=== PATIENT | male | born 1980 | race Native Hawaiian/Other Pacific Islander ===

== ENCOUNTER 2017-07-10 10:15 | Observation (INO) | payer BC, OTHER ==
[2017-07-10 10:26] VITALS: BMI 34.4
[2017-07-10 10:57] LABS: BASO # 0.02 K/mm3 (0.0-2.0); BASO % 0.2 % (0.0-3.0); EOS # 0.1 (0.0-0.7); EOS % 1.1 % (1.5-5.0); GRAN # 5.72 (1.4-6.5); HEMOGLOBIN 15.9 g/dL (14.0-18.0); LYMPH # 4.6 (1.2-3.4); MEAN CELL VOLUME 84.7 fl (80.0-105.0); MEAN CORPUSCULAR HEMOGLOBIN 29.4 pg (25.0-35.0); MEAN CORPUSCULAR HGB CONC 34.7 g/dl (31.0-37.0); MEAN PLATELET VOLUME 9.5 fl (7.0-11.0); MONO # 0.5 (0.1-0.6); MONO % 4.7 % (1.0-6.0); RBC 5.41 10^6/uL (3.5-6.1); RED CELL DISTRIBUTION WIDTH 13.2 % (11.5-14.5)
--- NOTE | 2017-07-10 11:04 | ED PDOC ---
Arrival/HPI - General Chief Complaint: Palpitations Time Seen by Provider: 07/10/17 10:17 Historian: Patient - History of Present Illness Narrative History of Present Illness (Text): 07/10/17 11:04 A 39 year old male presents to the emergency department complaining of palpitations on and off, and at times shortness of breath. Patient reports palpitations developed last night. Patient reports he is taking Suboxone medication for the past 3-4 years. Patient notes he has been cutting down this medication in the past thirty days. Denies having these symptoms in the past. Patient notes father had history of [place] in the past. Patient reports to smoking cigarettes, less than a pack per day. Denies heat or cold intolerance. Denies diarrhea. Denies recent travel or prolonged immobilization. He DENIES chest pain to me. Denies pleuritic discomfort. Denies calf pain or swelling. Time/Duration: Other (last night) Symptom Onset: Sudden Symptom Course: Unchanged Activities at Onset: Rest Context: Home Past Medical History - Provider Review Nursing Documentation Reviewed: Yes - Psychiatric Hx Depression: No Hx Emotional Abuse: No Hx Physical Abuse: No Hx Substance Use: Yes - Surgical History Hx Musculoskeletal Surgery: Yes - Anesthesia Hx Anesthesia: Yes Hx Anesthesia Reactions: No Hx Malignant Hyperthermia: No - Suicidal Assessment Feels Threatened In Home Enviroment: No Family/Social History - Physician Review Nursing Documentation Reviewed: Yes Family/Social History: CAD/KS Smoking Status: Heavy Smoker > 10 Cigarettes Daily Hx Alcohol Use: No Hx Substance Use: Yes Substance used: marijuana Hx Substance Use Treatment: No Allergies/Home Meds Allergies/Adverse Reactions: Allergies No Known Allergies Allergy (Verified 07/10/17 10:31) Home Medications: Home Meds Medication Instructions Recorded Confirmed Buprenorphine HCl/Naloxone HCl 0.5 chang SL BID 12/22/11 07/10/17 [Suboxone 8 mg-2 mg] Ibuprofen [Motrin] 600 mg PO PRN PRN 07/10/17 07/10/17 Review of Systems - Review of Systems Constitutional: Fatigue, Other (tremors, hot/cold flashes). absent: Fevers Eyes: absent: Vision Changes ENT: Rhinorrhea. absent: Hearing Changes Respiratory: SOB. absent: Cough, Sputum Cardiovascular: Palpitations. absent: Chest Pain, Edema, Calf Pain, Orthopnea, Syncope Gastrointestinal: absent: Abdominal Pain Genitourinary Male: absent: Dysuria Musculoskeletal: absent: Back Pain, Neck Pain Skin: absent: Rash Neurological: absent: Headache, Dizziness, Focal Weakness Endocrine: absent: Polyuria Hemo/Lymphatic: absent: Easy Bleeding Psychiatric: absent: Depression, Suicidal Ideation Physical Exam - Physical Exam Narrative Physical Exam (Text): 07/10/17 11:01 Head: Atraumatic. Normocephalic. Eyes: PERRL. EOMI. Conjunctivae are not pale. ENT: Mucous membranes are moist and intact. Oropharynx is clear and symmetric. Neck: Supple. Full ROM. No JVD. No lymphadenopathy. No thyromegalyl. Cardiovascular: tachycardic. irregularly irregular rhythm. No murmurs, rubs, or gallops. Distal pulses are 2+ and symmetric. Pulmonary/Chest: No evidence of respiratory distress. Clear to auscultation bilaterally. No wheezing, rales or rhonchi. Abdominal: Soft and non-distended. There is no tenderness. No rebound, guarding, or rigidity. No organomegaly. Good bowel sounds. Back: No CVA tenderness. Extremities: No edema. No cyanosis. No clubbing. Full range of motion in all extremities. No calf tenderness. Skin: Skin is warm and dry. No petechiae. No purpura. Neurological: Alert, awake, and oriented to person, place, time, and situation. Normal speech. Motor and sensory exam intact. Psychiatric: Good eye contact. Normal interaction, affect, and behavior. Vital Signs Reviewed: Yes Vital Signs Temp Pulse Resp BP Pulse Ox 07/10/17 14:08 93 H 123/79 07/10/17 14:02 92 H 17 123/79 98 07/10/17 12:47 80 17 111/70 98 07/10/17 12:24 98 H 17 127/60 97 07/10/17 11:38 90 18 117/67 97 07/10/17 11:10 97 H 120/65 07/10/17 11:09 100 H 120/65 98 07/10/17 10:35 98.4 F 89 17 125/66 100 Temperature: Afebrile Blood Pressure: Normal Pulse: Irregular Respiratory Rate: Normal Appearance: Positive for: Well-Appearing, Non-Toxic, Comfortable Pain Distress: None Mental Status: Positive for: Alert and Oriented X 3 Finger Stick Blood Glucose: 87 Medical Decision Making ED Course and Treatment: 07/10/17 11:01 Impression: A 39 year old male with palpitations and shortness of breath, sudden onset last night. Plan: -- EKG -- Chest X-ray -- labs -- Cardizem -- Reassess and disposition Progress Notes: On exam, patient noted to be in tachycardic, irregular rhythm on monitor. EKG reveals atrial fibrillation with rapid ventricular response. He DENIES chest pain to me. No calf pain noted. Lungs clear. Oxygen saturations 100%. I feel sensation of sob likely due to tachyarrhytmia as no sob at rest and with rhythm control after Cardizem. Heparin bolus and drip initiated for new onset atrial fibrillation. Risks/benefits of medications reviewed with patient and family. 07/10/17 12:24 Chest X-ray Creator : Valerie Rachel MD IMPRESSION: No active pulmonary disease. Patient will be admitted to oncall physician Dr. Pederson, who has evaluated patient in Emergency department. Cardiology consulted. Treatment plan reviewed with patient he is agreeable to admission. Not tremulous or diaphoretic. - Lab Interpretations Lab Results: 07/10/17 10:40 07/10/17 10:40 Lab Results 07/10/17 11:15: Urine Color Yellow, Urine Appearance Clear, Urine pH 6.0, Ur Specific [place] 1.025, Urine Protein Negative, Urine Glucose (UA) Negative, Urine Ketones Negative, Urine Blood Large H, Urine Nitrate Negative, Urine Bilirubin Negative, Urine Urobilinogen 0.2, Ur Leukocyte Esterase Negative, Urine RBC 20 - 25, Urine WBC 0 - 2, Ur Epithelial Cells None, Amorphous Sediment Few, Urine Bacteria Mod 07/10/17 10:40: Sodium 142, Potassium 4.8, Chloride 107, Carbon Dioxide 25, Anion Gap 15, BUN 12, Creatinine 0.8, Est GFR ( Amer) > 60, Est GFR (Non- Af Amer) > 60, Random Glucose 101, Calcium 9.9, Magnesium 2.0, Total Bilirubin 0.1 L, AST 26, ALT 39, Alkaline Phosphatase 60, Lactate Dehydrogenase 401, Total Creatine Kinase 108, Troponin I < 0.01, Total Protein 7.4, Albumin 4.3, Globulin 3.0, Albumin/Globulin Ratio 1.4 07/10/17 10:40: PT 10.8, INR 0.94, APTT 32.7 07/10/17 10:40: WBC 11.0, RBC 5.41, Hgb 15.9, Hct 45.8, MCV 84.7, MCH 29.4, MCHC 34.7, RDW 13.2, Plt Count 232, MPV 9.5, Gran % 52.0, Lymph % (Auto) 42.0 H , [place] % (Auto) 4.7, Eos % (Auto) 1.1 L, Baso % (Auto) 0.2, Gran # 5.72, Lymph # (Auto) 4.6 H, [place] # (Auto) 0.5, Eos # (Auto) 0.1, Baso # (Auto) 0.02 I have reviewed the lab results: Yes - RAD Interpretation Radiology Orders: 07/10/17 10:40 CHEST PORTABLE [RAD] Stat - EKG Interpretation Interpreted by ED Physician: Yes Type: 12 lead EKG - Medication Orders Current Medication Orders: diltiaZEM IVPB 100mg in NS (Cardizem 100mg In Ns) 100 mls @ 5 mls/hr IV .Q20H PRN; Protocol; 5 MG/HR PRN Reason: TITRATE PER MD ORDER Last Admin: 07/10/17 11:10 Dose: 5 mls/hr eMAR Start Stop Document 07/10/17 11:10 SF (Rec: 07/10/17 11:10 [email or web address] Intravenous Solution Start Date 07/10/17 Start Time 11:10 End Date 07/10/17 Heparin Sodium/Sodium Chloride (Heparin 62124 Units/250ml 1/2 Normal Saline) 25 ,000 units in 250 mls @ 17.962 mls/hr IV .[id number] PRN; Protocol; 18 UNITS/KG/HR PRN Reason: ADJUST RATE PER PROTOCOL Ibuprofen (Motrin Tab) 600 mg PO Q8H PRN PRN Reason: Pain, moderate (4-7) Non-Formulary Medication (Buprenorphine Hcl/Naloxone Hcl [Suboxone 8 Mg-2 Mg Sl Film]) 0.5 chang SL BID TOLU Sotalol HCl (Betapace) 80 mg PO BID TOLU Last Admin: 07/10/17 14:08 Dose: 80 mg MAR Pulse and Blood Pressure Document 07/10/17 14:08 SF (Rec: 07/10/17 14:08 [email or web address] Pulse Pulse Rate (60-90) 93 Blood Pressure Blood Pressure (100/60-150/90) 123/79 Discontinued Medications Diltiazem HCl (Cardizem) 15 mg IVP ONCE ONE Stop: 07/10/17 10:42 Last Admin: 07/10/17 11:10 Dose: MAR Pulse and Blood Pressure Document 07/10/17 11:10 SF (Rec: 07/10/17 11:10 [email or web address] Pulse Pulse Rate (60-90) 97 Blood Pressure Blood Pressure (100/60-150/90) 120/65 Heparin Sodium (Porcine) (Heparin) 4,000 units IV ONCE ONE PRN Reason: Protocol Stop: 07/10/17 11:37 Last Admin: 07/10/17 12:50 Dose: 4,000 units eMAR Start Stop Document 07/10/17 12:50 SF (Rec: 07/10/17 12:50 SF [email or web address] Intravenous Solution Start Date 07/10/17 Start Time 12:50 Ibuprofen (Motrin Tab) 600 mg PO PRN PRN PRN Reason: Pain, moderate (4-7) Sotalol HCl (Betapace) 80 mg PO BID TOLU - Scribe Statement The provider has reviewed the documentation as recorded by the Kylah Shaikh Provider Scribe Attestation: All medical record entries made by the Scribe were at my direction and personally dictated by me. I have reviewed the chart and agree that the record accurately reflects my personal performance of the history, physical exam, medical decision making, and the department course for this patient. I have also personally directed, reviewed, and agree with the discharge instructions and disposition. Disposition/Present on Arrival - Present on Arrival Any Indicators Present on Arrival: No History of DVT/PE: No History of Uncontrolled Diabetes: No Urinary Catheter: No History of Decub. Ulcer: No History Surgical Site Infection Following: None - Disposition Have Diagnosis and Disposition been Completed?: Yes Diagnosis: Atrial fibrillation with rapid ventricular response Disposition: HOSPITALIZED Disposition Time: 11:45 Patient Plan: Admission, Telemetry Condition: FAIR
[2017-07-10 11:06] LABS: ALB/GLOB RATIO 1.4 (1.1-1.8); ALBUMIN 4.3 g/dL (3.0-4.8); ALT/SGPT 39 U/L (7-56); AST/SGOT 26 U/L (17-59); BLOOD UREA NITROGEN 12 mg/dL (7-21); CALCIUM 9.9 mg/dL (8.4-10.5); GFR AFRICAN-AMERICAN > 60; GFR NON-AFRICAN AMERICAN > 60; INR 0.94 (0.93-1.08); PARTIAL THROMBOPLASTIN TIME 32.7 Seconds (25.1-36.5); PROTHROMBIN TIME 10.8 SECONDS (9.4-12.5)
[2017-07-10] MEDS: diltiaZEM IVPB 100mg in NS 100 ML IV PRN ×2 (11:10→18:58)
[2017-07-10 11:17] LABS: TROPONIN I < 0.01 ng/mL
[2017-07-10 11:30] LABS: URINE BILIRUBIN NEGATIVE (NEGATIVE); URINE BLOOD LARGE (NEGATIVE); URINE GLUCOSE (UA) NEGATIVE (NEGATIVE); URINE LEUKOCYTE ESTERASE NEGATIVE Leu/uL (NEGATIVE); URINE PROTEIN NEGATIVE mg/dL (<30 mg/dL); URINE UROBILINOGEN 0.2 E.U./dL (<1 E.U./dL)
[2017-07-10 11:33] LABS: URINE APPEARANCE CLEAR (CLEAR); URINE COLOR YELLOW (YELLOW)
[2017-07-10 12:07] LABS: URINE RBC 20 - 25 /hpf (0-2); URINE WBC 0 - 2 /hpf (0-6)
[2017-07-10 12:08] LABS: URINE AMORPHOUS SEDIMENT FEW; URINE BACTERIA MOD (NEG)
--- NOTE | 2017-07-10 12:21 | RAD ---
HISTORY: Palpitations COMPARISON: No prior. FINDINGS: LUNGS: The lungs are clear. PLEURA: No significant pleural effusion identified, no pneumothorax apparent. CARDIOVASCULAR: Normal. OSSEOUS STRUCTURES: No significant abnormalities. VISUALIZED UPPER ABDOMEN: Normal. OTHER FINDINGS: None. IMPRESSION: No active pulmonary disease.
--- NOTE | 2017-07-10 15:06 | HP ---
HISTORY OF PRESENT ILLNESS: I was called down to the emergency room to admit this young man. He is a 37-year-old man, who presents with palpitations on and off, for shortness of breath over the past few days. He also has been developing palpitations and shortness of breath and not feeling well. It got worse and came to the emergency room. He has also been on Suboxone for the past 2-4 years and has been cutting down his medication with the physician on the outpatient. PAST MEDICAL HISTORY: Past medical history for him is he smokes cigarettes. He has had tremors and hot flashes. He takes ibuprofen. He has been on the Z-Jun for his cold. He has a history of substance abuse, that is why he is on the Suboxone. He still smokes marijuana. FAMILY HISTORY: I believe there is father with a past medical history of myocardial infarction in the past. ALLERGIES: HE HAS NO KNOWN DRUG ALLERGIES. MEDICATIONS: He takes Suboxone and ibuprofen. REVIEW OF SYSTEMS: No acute vision or hearing changes. No sore throat. He has palpitations, chest discomfort, shortness of breath, nauseousness. He has tremors, hot flashes. No abdominal pain. No constipation, diarrhea. No leg pains. No skin issues. PHYSICAL EXAMINATION: VITAL SIGNS: He has a 98.4 temp; 89 pulse at this time, it has been as high as 130 when he came in before the Cardizem drip; 17 respiratory rate; BP is 125/66 and oxygen sat is 100. HEENT: His head is atraumatic, normocephalic. His extraocular muscles are intact. Pupils equal, reactive to light. Throat is moist. NECK: Supple. HEART: Irregular rate. No murmurs. LUNGS: Decreased breath sounds, but clear to auscultation bilaterally. ABDOMEN: Soft, nontender. Positive bowel sounds. No guarding, no rebound, no CVA tenderness. EXTREMITIES: Have no edema. SKIN: Warm and dry. No apparent rashes or ulcers. NEUROLOGIC: He is alert and oriented x3. Cranial nerves II through XII grossly intact. GCS is 15. He has good eye contact. No anxiety or depression. LYMPHATICS: Nonpalpable thyroid. No palpable lymphadenopathy appreciated. LABORATORY DATA: He had a bunch of tests done. He has a urine, which showed large blood. He has 142 sodium, potassium 4.8, BUN 12, creatinine 0.8, GFR is greater than 60, sugar is 101, calcium is 9.92, magnesium is 2, AST is 26, ALT is 39, alk phos 60, total protein is 7.4, troponin I of less than 0.01, total creatine kinase is 108, lactate dehydrogenase is 401. INR is 0.94. He has a 11 white count, 15.9 hemoglobin, 45.8 hematocrit with 232 platelets. He has a chest x-ray pending. IMPRESSION AND PLAN: He is going to be seen by Dr. Amos. He is on IV Cardizem drip. Put him back on his Suboxone. He will have a heart healthy diet and hopefully we can improve him quickly. He is here for new onset atrial fibrillation with rapid response. Esdras Pederson DO
--- NOTE | 2017-07-10 15:54 | CARD ---
APPROVED REPORT EKG Measurement Heart [id number] <Conclusion> Atrial fibrillation with rapid ventricular response Abnormal ECG
--- NOTE | 2017-07-10 16:02 | CON ---
DATE: 07/10/2017 CARDIOLOGY CONSULTATION HISTORY: The patient is a 37-year-old male who presented with new onset of palpitations this morning. This is associated with mild shortness of breath. No chest pain. PAST MEDICAL HISTORY: Includes smoking. The patient is on Suboxone which is for his oxycodone addiction. He has been off oxycodone for several years now. No cardiac history is noted. No chest pain or shortness of breath. No diabetes mellitus. SOCIAL HISTORY: The patient is an active smoker. REVIEW OF SYSTEMS: A 14-point review of systems is reviewed in detail. Other than the palpitations and mild shortness of breath, there is no other cardiac symptomatology. PHYSICAL EXAMINATION: VITAL SIGNS: Blood pressure 123/80, the heart rate is atrial fibrillation in the 90s. NECK: Negative JVD. LUNGS: Without rales. HEART: Reveals S1, S2. EXTREMITIES: Without edema. LABORATORY DATA: Includes an EKG that shows atrial fibrillation with nonspecific ST-T changes. The hemoglobin is 15.9. Troponin is negative x1. IMPRESSION: 1. New-onset atrial fibrillation. 2. Palpitations. 3. Nicotine addiction. 4. Dyspnea. Given these findings, the patient is on IV Cardizem. We will add sotalol to the regimen. Heparin has been ordered. If the patient remains in normal sinus rhythm, we will arrange for VENKATA and cardioversion tomorrow. I have discussed this with the patient in detail. I have discussed with them also the need to stop smoking. Gray Amos MD
[2017-07-10] MEDS: Heparin25000 units/250ml 1/2NS 25,000 UNITS/250 ML BAG IV PRN (21:41)
--- NOTE | 2017-07-11 01:32 | CP.PCM.PN ---
Subjective - Date & Time of Evaluation Date of Evaluation: 07/11/17 Time of Evaluation: 01:31 - Subjective Subjective: Nurse calls and tells that patient is on cardizem drip , heart rate goes down to below 60's. Nurse was instructed to hold cardizem. Patient was seen at bedside . Complains of headache,diffuse , mild. Later on , he requested for a sleeping pill. One more time, later on, complained of soreness in left arm.He told nurse that he had numbness in the arm. Denied chest pain, sob, nausea, sweating, palpitations. 37 year old male was admitted with palpitation, sob, not feeling well, Has PMH of smoking, marijuana use, substance abuse on suboxone, family history of father having DE. Objective - Vital Signs/Intake and Output Vital Signs (last 24 hours): Temp Pulse Resp BP Pulse Ox 98.7 F 80 20 100/66 97 07/11/17 00:01 07/11/17 00:01 07/11/17 00:01 07/11/17 00:01 07/11/17 00:01 - Medications Medications: Current Medications Diphenhydramine HCl (Benadryl) 50 mg PO STAT STA Stop: 07/11/17 01:32 diltiaZEM IVPB 100mg in NS (Cardizem 100mg In Ns) 100 mls @ 5 mls/hr IV .Q20H PRN; Protocol; 5 MG/HR PRN Reason: TITRATE PER MD ORDER Last Admin: 07/10/17 18:58 Dose: 5 mg/hr, 5 mls/hr Heparin Sodium/Sodium Chloride (Heparin 07612 Units/250ml 1/2 Normal Saline) 25 ,000 units in 250 mls @ 17.962 mls/hr IV .[id number] PRN; Protocol; 18 UNITS/KG/HR PRN Reason: ADJUST RATE PER PROTOCOL Last Admin: 07/10/17 21:41 Dose: 18 units/kg/hr, 17.962 mls/hr Ibuprofen (Motrin Tab) 600 mg PO Q8H PRN PRN Reason: Pain, moderate (4-7) Last Admin: 07/10/17 22:05 Dose: 600 mg Non-Formulary Medication (Buprenorphine Hcl/Naloxone Hcl [Suboxone 8 Mg-2 Mg Sl Film]) 0.5 chang SL BID TOLU Last Admin: 07/10/17 18:07 Dose: Not Given Sotalol HCl (Betapace) 80 mg PO BID [facility] Last Admin: 07/10/17 18:27 Dose: 80 mg - Labs Labs: PT 10.8 SECONDS (9.4-12.5) 07/10/17 10:40 INR 0.94 (0.93-1.08) 07/10/17 10:40 APTT 32.7 Seconds (25.1-36.5) 07/10/17 10:40 Most Recent Lab Values WBC 12.4 10^3/ul (4.5-11.0) H 07/11/17 03:50 RBC 5.35 10^6/uL (3.5-6.1) 07/11/17 03:50 Hgb 15.6 g/dL (14.0-18.0) 07/11/17 03:50 Hct 45.4 % (42.0-52.0) 07/11/17 03:50 MCV 84.9 fl (80.0-105.0) 07/11/17 03:50 MCH 29.2 pg (25.0-35.0) 07/11/17 03:50 MCHC 34.4 g/dl (31.0-37.0) 07/11/17 03:50 RDW 13.1 % (11.5-14.5) 07/11/17 03:50 Plt Count 231 10^3/uL (120.0-450.0) 07/11/17 03:50 MPV 9.5 fl (7.0-11.0) 07/11/17 03:50 Gran % 52.0 % (50.0-68.0) 07/10/17 10:40 Lymph % (Auto) 42.0 % (22.0-35.0) H 07/10/17 10:40 White % (Auto) 4.7 % (1.0-6.0) 07/10/17 10:40 Eos % (Auto) 1.1 % (1.5-5.0) L 07/10/17 10:40 Baso % (Auto) 0.2 % (0.0-3.0) 07/10/17 10:40 Gran # 5.72 (1.4-6.5) 07/10/17 10:40 Lymph # (Auto) 4.6 (1.2-3.4) H 07/10/17 10:40 White # (Auto) 0.5 (0.1-0.6) 07/10/17 10:40 Eos # (Auto) 0.1 (0.0-0.7) 07/10/17 10:40 Baso # (Auto) 0.02 K/mm3 (0.0-2.0) 07/10/17 10:40 PT 10.8 SECONDS (9.4-12.5) 07/10/17 10:40 INR 0.94 (0.93-1.08) 07/10/17 10:40 APTT 32.7 Seconds (25.1-36.5) 07/10/17 10:40 Sodium 138 mmol/L (132-148) 07/11/17 03:50 Potassium 4.4 mmol/L (3.6-5.0) 07/11/17 03:50 Chloride 103 mmol/L (98-107) 07/11/17 03:50 Carbon Dioxide 27 mmol/L (21-33) 07/11/17 03:50 Anion Gap 13 (10-20) 07/11/17 03:50 BUN 15 mg/dL (7-21) 07/11/17 03:50 Creatinine 0.8 mg/dl (0.8-1.5) 07/11/17 03:50 Est GFR ( Amer) > 60 07/11/17 03:50 Est GFR (Non-Af Amer) > 60 07/11/17 03:50 Random Glucose 96 mg/dL (70-110) 07/11/17 03:50 Calcium 9.8 mg/dL (8.4-10.5) 07/11/17 03:50 Magnesium 2.0 mg/dL (1.7-2.2) 07/10/17 10:40 Total Bilirubin 0.3 mg/dL (0.2-1.3) 07/11/17 03:50 AST 24 U/L (17-59) 07/11/17 03:50 ALT 35 U/L (7-56) 07/11/17 03:50 Alkaline Phosphatase 61 U/L (38-126) 07/11/17 03:50 Lactate Dehydrogenase 401 U/L (333-699) 07/10/17 10:40 Total Creatine Kinase 108 U/L (35-230) 07/10/17 10:40 Troponin I < 0.01 ng/mL 07/11/17 03:50 Total Protein 7.0 g/dL (5.8-8.3) 07/11/17 03:50 Albumin 3.9 g/dL (3.0-4.8) 07/11/17 03:50 Globulin 3.1 gm/dL 07/11/17 03:50 Albumin/Globulin Ratio 1.3 (1.1-1.8) 07/11/17 03:50 Urine Color Yellow (YELLOW) 07/10/17 11:15 Urine Appearance Clear (CLEAR) 07/10/17 11:15 Urine pH 6.0 (4.7-8.0) 07/10/17 11:15 Ur Specific [place] 1.025 (1.005-1.035) 07/10/17 11:15 Urine Protein Negative mg/dL (<30 mg/dL) 07/10/17 11:15 Urine Glucose (UA) Negative mg/dL (NEGATIVE) 07/10/17 11:15 Urine Ketones Negative mg/dL (NEGATIVE) 07/10/17 11:15 Urine Blood Large (NEGATIVE) H 07/10/17 11:15 Urine Nitrate Negative (NEGATIVE) 07/10/17 11:15 Urine Bilirubin Negative (NEGATIVE) 07/10/17 11:15 Urine Urobilinogen 0.2 E.U./dL (<1 E.U./dL) 07/10/17 11:15 Ur Leukocyte Esterase Negative Anne/uL (NEGATIVE) 07/10/17 11:15 Urine RBC 20 - 25 /hpf (0-2) 07/10/17 11:15 Urine WBC 0 - 2 /hpf (0-6) 07/10/17 11:15 Ur Epithelial Cells None /hpf (0-5) 07/10/17 11:15 Amorphous Sediment Few 07/10/17 11:15 Urine Bacteria Mod (NEG) 07/10/17 11:15 - Constitutional Appears: Well, No Acute Distress - Head Exam Head Exam: ATRAUMATIC, NORMAL INSPECTION, NORMOCEPHALIC - Eye Exam Eye Exam: Normal appearance - ENT Exam ENT Exam: Normal External Ear Exam - Neck Exam Neck Exam: Normal Inspection - Respiratory Exam Respiratory Exam: NORMAL BREATHING PATTERN - Cardiovascular Exam Cardiovascular Exam: absent: JVD - GI/Abdominal Exam GI & Abdominal Exam: absent: Distended - Rectal Exam Rectal Exam: Deferred - Exam Additional comments: Deferred. - Extremities Exam Extremities Exam: Full ROM, Normal Inspection. absent: Tenderness Additional comments: Left antecubital area has # 20 angiocath. Non tender. - Back Exam Back Exam: NORMAL INSPECTION - Neurological Exam Neurological Exam: Alert, Awake, Oriented x3 - Psychiatric Exam Psychiatric exam: Normal Affect, Normal Mood - Skin Skin Exam: Normal Color Assessment and Plan - Assessment and Plan (Free Text) Assessment: On cardizem drip-bradyarrhythmia 2* to it. Adjustment insomnia. Left arm soreness. Headache. Atriar fibrillation with RVR. Obesity. Smoker. Substance abuse. Family history of DE. Plan: Hold cardizem, restart prn. EKG----------> Atrial fibrillation. Troponin--------->0.01. Benadryl 50 mg PO x 1. Ibuprofen 800 mg PO x1. Continue present management.
[2017-07-11 04:10] LABS: HEMOGLOBIN 15.6 g/dL (14.0-18.0); MEAN CELL VOLUME 84.9 fl (80.0-105.0); MEAN CORPUSCULAR HEMOGLOBIN 29.2 pg (25.0-35.0); MEAN CORPUSCULAR HGB CONC 34.4 g/dl (31.0-37.0); MEAN PLATELET VOLUME 9.5 fl (7.0-11.0); RBC 5.35 10^6/uL (3.5-6.1); RED CELL DISTRIBUTION WIDTH 13.1 % (11.5-14.5); WHITE BLOOD COUNT 12.4 10^3/ul (4.5-11.0)
[2017-07-11 04:30] LABS: TROPONIN I < 0.01 ng/mL
[2017-07-11 04:31] LABS: ALB/GLOB RATIO 1.3 (1.1-1.8); ALBUMIN 3.9 g/dL (3.0-4.8); ALT/SGPT 35 U/L (7-56); AST/SGOT 24 U/L (17-59); BLOOD UREA NITROGEN 15 mg/dL (7-21); CALCIUM 9.8 mg/dL (8.4-10.5); GFR AFRICAN-AMERICAN > 60; GFR NON-AFRICAN AMERICAN > 60
[2017-07-11] MEDS: cefTRIAXone 1 gm 1 GM/100 ML BAG IVPB SCH (09:59)
--- NOTE | 2017-07-11 12:27 | PN ---
DATE: 07/11/2017 CARDIOLOGY FOLLOWUP SUBJECTIVE: The patient remains in atrial fibrillation. However, his tachycardia and his palpitations have subsided. PHYSICAL EXAMINATION: VITAL SIGNS: Blood pressure is 127/80, the heart rates in the 70s. NECK: Negative JVD. LUNGS: Without rales. HEART: Reveals S1, S2. EXTREMITIES: Without edema. LABORATORY DATA: Troponins are negative x2. BUN and creatinine are unremarkable. Hemoglobin is 15.9. Echocardiogram is pending today. Thyroid function tests are pending. IMPRESSION: 1. New-onset atrial fibrillation. 2. Palpitations, which are better. 3. Tachycardia, which is better on his current medications. 4. Nicotine addiction. PLAN: Given these findings, we will obtain his echocardiogram today. If the patient does not convert on medications, he is scheduled for VENKATA later today. Gray Amos MD
--- NOTE | 2017-07-11 13:13 | CARD ---
APPROVED REPORT EXAM: Two-dimensional and M-mode echocardiogram with Doppler and color Doppler. INDICATION Atrial Fibrillation 2D DIMENSIONS Left Atrium (2D)3.6 (1.6-4.0cm)IVSd1.5 (0.7-1.1cm) LVDd3.7 (3.9-5.9cm)PWd1.2 (0.7-1.1cm) LVDs2.8 (2.5-4.0cm)FS (%) 26.5 % LVEF (%)52.5 (>50%) M-Mode DIMENSIONS Aortic Root3.30 (2.2-3.7cm)Aortic Cusp Exc.2.30 (1.5-2.0cm) Aortic Valve AoV Peak Opwcyanx194.0cm/Gideon Peak GR.5mmHg Mitral Valve E/A ratio0.0 TDI E/Lateral E'0.0E/Medial E'0.0 Tricuspid Valve TR Peak [id number] Peak Gr.22mmHg [id number] LEFT VENTRICLE There is mild concentric left ventricular hypertrophy. The left ventricular function is normal. The left ventricular ejection fraction is within the normal range. RIGHT VENTRICLE The right ventricle is normal size. ATRIA The left atrium is borderline dilated. The right atrium size is normal. AORTIC VALVE The aortic valve is thickened but opens well. MITRAL VALVE The mitral valve is thickened but opens well. Mitral regurgitation is mild. TRICUSPID VALVE The tricuspid valve leaflets are thickened , but open well. There is trace to mild tricuspid regurgitation. There is no pulmonary hypertension. PULMONIC VALVE The pulmonic valve is not well visualized. PERICARDIAL EFFUSION There is no pericardial effusion. <Conclusion> Borderline LVH with good LV function Mild MR Trace to mild TR No pulmonary hypertension
[2017-07-11 13:26] LABS: T4 11.8 ug/dL (5.5-11.0)
--- NOTE | 2017-07-11 14:04 | PN ---
DATE: SUBJECTIVE: He is resting comfortably in bed. He slept well. Feeling better, overall. He is here with his . He has got no chest pain, no shortness of breath, no abdominal pain. He is currently on Betapace; Suboxone; Cardizem IV, which is on hold; heparin IV; Motrin and he also added Rocephin for UTI so he is on Betapace. He is in atrial fibrillation, we are trying to convert. PHYSICAL EXAMINATION VITAL SIGNS: He has a 98 temperature, 101 pulse, 105/74 blood pressure, 20 respiratory rate, 100% O2 saturation on room air. When I saw him this morning, his pulse was about 100 and it was irregular. HEENT: Head: Atraumatic, normocephalic. HEART: Irregular rate in the 100s. LUNGS: Decreased breath sounds, but clear. ABDOMEN: Soft, nontender. Positive bowel sounds. EXTREMITIES: Have no edema. LABORATORY DATA: His urine with large blood, it showed moderate bacteria, I will put him on Rocephin. He has a 138 sodium, potassium 4.4, BUN 15, creatinine 0.8. GFR is greater than 60, sugar is 96. Calcium is 9.8, total bilirubin is 0.38. AST is 24, ALT is 35, alkaline phosphatase is 51. Both troponins are less than 0.01. His protein is 7, albumin is 3.9. His PTT is 114, a little high. His white count bumped to 12.4 apart from the urine. Hemoglobin is 15.6, hematocrit 45.4, platelets of 231,000. ASSESSMENT AND PLAN: He is being seen by Cardiology; was also seen by Dr. Leong, the house doctor, at 01:30 in the morning today. He complains of a headache. Waiting for Dr. Amos to come in and see him today. At this time, I do not think he is converted to normal sinus rhythm. I will talk to Dr. Amos, the car storer, about what the next step is. We will continue with the Betapace, the heparin IV and Rocephin for the urinary tract infection. Esdras Pederson DO [facility] # [id number]
[2017-07-11] MEDS: Heparin25000 units/250ml 1/2NS 25,000 UNITS/250 ML BAG IV PRN (14:11)
[2017-07-11] MEDS ORDERED: Flumazenil 0.1 mg/ml Inj (5ml) IVP ONE (15:07)
[2017-07-11] MEDS ORDERED: Metoprolol 1 mg/ml Inj IVP ONE ×2 (15:07→15:45)
[2017-07-11] MEDS ORDERED: Naloxone 0.4 mg/ml Inj (Adult) ONE (15:07)
[2017-07-11] MEDS ORDERED: Midazolam 2 MG/2 ML VIAL ONE ×2 (15:07→15:31)
[2017-07-11] MEDS ORDERED: Midazolam 2 MG/2 ML VIAL IV ONE ×7 (15:14→15:36)
--- NOTE | 2017-07-11 15:57 | CARD ---
APPROVED REPORT EKG Measurement Heart [id number] <Conclusion> Atrial fibrillation Early repolarization Abnormal ECG
[2017-07-11] MEDS ORDERED: Sodium Chloride 0.9% 1,000 ML IV SCH (16:00)
--- NOTE | 2017-07-11 16:21 | CARD ---
APPROVED REPORT EKG Measurement Heart [id number] <Conclusion> Normal sinus rhythm Normal ECG
--- NOTE | 2017-07-11 17:17 | CARD ---
APPROVED REPORT EXAM: Transesophageal echocardiogram with color flow Doppler and Synchronized Cardioversion. INDICATION Atrial Fibrillation Reason For Test : VENKATA before Cardioversion PROCEDURE After obtaining informed consent, patient underwent transesophageal echo in the Echo Lab. Type of Sedation : Conscious Sedation Sedation was administered by Dr. Abbasi. Sedation was achieved with Versed and , Fentanyl 8 mg and 200 Fentanyl intravenously. Transesophageal probe was inserted and advanced into esophagus without difficulty. Echo enhancement indication: R/O Septal defect. Echo enhancement agent administered: Agitated Saline The VENKATA was performed without complications. Synchronized Cardioversion attempted: Successful Synchronized Cardioversion acheived with 200 Joules after first attempt(s). Rhythm following Synchronized Cardioversion: Normal Sinus Rhythm Throughout the procedure, the blood pressure, pulse oximetry, cardiac rhythm, and rate were monitored. The patient tolerated the procedure without adverse effects. Recovery from conscious sedation was uneventful and vital signs were stable. LEFT VENTRICLE The left ventricle is normal size. There is normal left ventricular wall thickness. The left ventricular function is normal.EF-55( a fib) There is normal LV segmental wall motion. The left ventricular diastolic function is normal. No left ventricle thrombus noted on this study. There is no ventricular septal defect visualized. There is no left ventricular aneurysm. RIGHT VENTRICLE The right ventricle is normal size. There is normal right ventricular wall thickness. The right ventricular systolic function is normal. ATRIA The left atrium is borderline dilated. The right atrium size is normal. The interatrial septum is intact with no evidence for an atrial septal defect. AORTIC VALVE The aortic valve is normal in structure. Trivial AR. There is no aortic valvular stenosis. There is no aortic valvular vegetation. MITRAL VALVE The mitral valve leaflets are thickened. There is no evidence of mitral valve prolapse. There is no mitral valve stenosis. Mitral regurgitation is mild. TRICUSPID VALVE The tricuspid valve leaflets display thickening. There is trace tricuspid regurgitation. There is no tricuspid valve prolapse or vegetation. There is no tricuspid valve stenosis. PULMONIC VALVE The pulmonary valve is normal in structure. There is trace pulmonic valvular regurgitation. There is no pulmonic valvular stenosis. GREAT VESSELS The aortic root is normal in size. The ascending aorta is normal in size. The pulmonary artery is normal. The IVC is normal in size and collapses >50% with inspiration. PERICARDIAL EFFUSION There is no pericardial effusion. There is no pleural effusion. <Conclusion> Normal chamber , Borderline LAE. EF-55% ( Afib) Trivial AR. Mitral regurgitation is mild. There is trace tricuspid regurgitation. There is trace pulmonic valvular regurgitation. The IVC is normal in size and collapses >50% with inspiration. There is no pleural effusion. Velicioty in JULES>0.4 m/s No significant plaque in Ascending, Arch, and descending aorta. no thrombus noted.No absolute contraindiaction to cardioversion, 200 Joules Synchronized Caedioversion done, Pt. converted to NSR. Recommendation. May consider Sleep study to R/o MITA, as during conscious sedation, Pt.'s sleep pattern was C/W MITA. CC; stuart Amos/ Bg.
[2017-07-12 05:59] VITALS: O2SAT 98
[2017-07-12 07:05] LABS: HEMOGLOBIN 15.1 g/dL (14.0-18.0); MEAN CELL VOLUME 84.1 fl (80.0-105.0); MEAN CORPUSCULAR HGB CONC 34.5 g/dl (31.0-37.0); MEAN PLATELET VOLUME 9.6 fl (7.0-11.0); RBC 5.21 10^6/uL (3.5-6.1); WHITE BLOOD COUNT 9.6 10^3/ul (4.5-11.0)
[2017-07-12 07:24] LABS: ALB/GLOB RATIO 1.3 (1.1-1.8); ALBUMIN 3.9 g/dL (3.0-4.8); ALT/SGPT 44 U/L (7-56); AST/SGOT 32 U/L (17-59); BLOOD UREA NITROGEN 15 mg/dL (7-21); CALCIUM 9.7 mg/dL (8.4-10.5); GFR AFRICAN-AMERICAN > 60; GFR NON-AFRICAN AMERICAN > 60
[2017-07-12] MEDS: cefTRIAXone 1 gm 1 GM/100 ML BAG IVPB SCH (09:31)
--- NOTE | 2017-07-12 11:48 | PN ---
DATE: 07/12/2017 CARDIOLOGY FOLLOWUP SUBJECTIVE: The patient is without shortness of breath or chest pain. He tolerated the cardioversion. He is currently in normal sinus rhythm in the 60s at rest. PHYSICAL EXAMINATION: VITAL SIGNS: Stable. NECK: Negative JVD. LUNGS: Without rales. HEART: Reveals S1, S2. EXTREMITIES: Without edema. LABORATORY DATA: Unremarkable. IMPRESSION: 1. Paroxysmal atrial fibrillation. 2. No thrombus in the cardiac chambers on transesophageal echocardiogram. 3. Good left ventricular function. 4. Nicotine addiction. Given these findings, the patient can be discharged today on sotalol 80 b.i.d. I have discussed with him about the need to stop smoking. He has agreed to take the nicotine patch, which we will prescribe for him. Followup and instructions given to the patient in detail. Gray Amos MD
[2017-07-12 12:22] VITALS: BP 110/69; PULSE 72; RESP 21; TEMP 97.6
--- NOTE | 2017-07-12 23:31 | CARD ---
APPROVED REPORT EKG Measurement Heart [id number] MO [id number] [id number] <Conclusion> Normal sinus rhythm ST elevation, probably due to early repolarization Borderline ECG
--- NOTE | 2017-07-13 03:01 | DS ---
HOSPITAL COURSE: He was cardioverted yesterday and he converted to normal sinus rhythm. He is comfortable, sitting up in bed, eating his breakfast. He has no complaints of chest pain or shortness of breath. No abdominal pain. He was told that he can go home today reach out the Cardiology. PHYSICAL EXAMINATION: VITAL SIGNS: He has a 98 temperature; 66 pulse, regular; 123/86 blood pressure; 18 respiratory rate; 98% O2 sat on room air. HEENT: Head is atraumatic, normocephalic. NECK: Supple. HEART: Regular rate. LUNGS: Decreased breath sounds, but clear. ABDOMEN: Soft. EXTREMITIES: No edema. He will be on sotalol 80 mg b.i.d. that is new for him. He will continue with his Suboxone that he gets from physician at home. He will not need any other medications. He has a urine that was positive. He will get Rocephin for 2 days that to cover the UTI. Sodium 140, potassium 4.4, BUN 15, creatinine 0.9, GFR is greater than 60, sugar is 95, calcium 9.7. Total bilirubin is 0.3, AST is 32, ALT is 44, alkaline phosphatase 58, total protein is 7. His TSH is 2.06. Troponins are less than 0.01. He has a 9.6 white count, better; 15.5 hemoglobin; 43.8 hematocrit with 213 platelets. I will reach out to Cardiology. My plan is to discharge him on his sotalol. He ill continue with his Suboxone. He is not to smoke cigarettes anymore. He will follow up with his primary care doctor in 2 days Esdras Pederson DO [facility]
== END 2017-07-12 12:27 | disposition home or self-care (01) ==
LOC: ED 10:15 → ERH 11:50 → INTOOBSV 11:50 → ERH 12:39 → 3RSO 14:28
PROVIDERS: ADMIT Family Medicine; ATTEND Family Medicine
DX: I48.0 Paroxysmal atrial fibrillation (principal); N39.0 Urinary tract infection, site not specified; R00.2 Palpitations; E66.9 Obesity, unspecified; Z68.32 Body mass index [BMI] 32.0-32.9, adult; F17.210 Nicotine dependence, cigarettes, uncomplicated; F51.02 Adjustment insomnia; Z82.49 Family history of ischemic heart disease and other diseases of the circulatory system; F12.90 Cannabis use, unspecified, uncomplicated; R40.2413 Glasgow coma scale score 13-15, at hospital admission
CPT/HCPCS: 36415; 71045; 80053; 81001; 82550; 82948; 83615; 83735; 84436; 84443; 84484; 85025; 85027; 85610; 85730; 92960; 93005; 93306; 93312; 96374; 99152; 99153; 99285; G0378; J0696; J1644; J2250; J3010; J7040